=== PATIENT | female | born 1955 | race Caucasian/White ===

== ENCOUNTER 2018-01-01 17:02 | Emergency (ER) | payer OTHER ==
[~2018-01-01] VITALS: Ht 157.5 cm; Wt 92.1 kg
[~2018-01-01 17:02] MED LIST: ASPI325 PO; Alph-E-Mixed400 UNIT; BIEST/PROG PO; Calcium 600 MG1 EACH PO; Complete Multi1 EAC1 PO; Dhea Tablet1 EACH PO; MAGNESIUM400 MG PO; MELATONIN 5 MG PO; Super B Comple150 MG PO; Synthroid25 MCG PO; Vitamin C1000 M1 PO
[2018-01-01] MEDS ORDERED: LORA1SY (17:15)
[2018-01-01 17:37] LABS: BASOPHILS ABSOLUTE AUTO 0.01 K/mm3 (0.00-0.23); BASOPHILS PERCENT AUTO 0 % (0-2); EOSINOPHILS ABSOLUTE AUTO 0.08 K/mm3 (0.00-0.68); EOSINOPHILS PERCENT AUTO 1 % (0-6); Hematocrit 44.4 % (33.0-51.0); Hemoglobin 14.8 g/dL (11.5-16.0); IMMATURE GRAN ABSOLUTE AUTO 0.02 K/mm3 (0.00-0.10); IMMATURE GRAN PERCENT AUTO 0 % (0-1); LYMPHOCYTES ABSOLUTE AUTO 2.32 K/mm3 (0.84-5.20); LYMPHOCYTES PERCENT AUTO 32 % (21-46); MONOCYTES ABSOLUTE AUTO 0.41 K/mm3 (0.16-1.47); MONOCYTES PERCENT AUTO 6 % (4-13); Mean Corpuscular HGB 28.3 pg (26.0-34.0); Mean Corpuscular HGB Conc 33.3 g/dL (31.5-36.5); Mean Corpuscular Volume 85 fL (80-100); Mean Platelet Volume 9.6 fL (9.1-12.4); NEUTROPHILS ABSOLUTE AUTO 4.43 K/mm3 (1.96-9.15); NEUTROPHILS PERCENT AUTO 61 % (41-73); Platelet Count 303 K/mm3 (150-400); RDW Coefficient Variation 12.5 % (11.7-14.2); RDW Standard Deviation 38.4 fL (35.1-46.3); Red Blood Cell Count 5.23 M/mm3 (3.80-5.20); White Blood Cell Count 7.27 K/mm3 (4.00-11.30)
[2018-01-01 17:45] LABS: Base Excess Venous 0.5 mmol/L; Bicarbonate Venous 24.3 mmol/L (24.0-30.0); PCO2 Venous 39.1 mmHg (38-42); PO2 Venous 38.8 mmHg (38-42); pH Blood Venous 7.42 (7.34-7.37)
[2018-01-01 18:01] LABS: Alanine Aminotransfer (ALT/SGP 34 U/L (12-78); Albumin, Blood 3.3 g/dL (3.4-5.0); Albumin/Globulin Ratio 0.9 (0.8-1.8); Alk Phos 69 U/L (50-136); Anion Gap 10 mmol/L (6-16); Aspartate Aminotrans (AST/SGOT 27 U/L (12-37); Bilirubin, Total 0.3 mg/dL (0.1-1.0); Blood Urea Nitrogen 21 mg/dL (8-24); Bun/Creatinine Ratio 28.1 (12.0-20.0); CO2, Blood 23 mmol/L (21-32); Calcium, Blood 9.1 mg/dL (8.5-10.1); Chloride, Blood 109 mmol/L (98-108); Creatinine, Blood 0.75 mg/dL (0.40-1.00); Globulin, Blood 3.6 g/dL (2.2-4.0); Glomerular Filtration Rate >60 (60-); Glucose, Blood 144 mg/dL (70-99); Magnesium, Blood 2.1 mg/dL (1.6-2.4); Potassium, Blood 3.7 mmol/L (3.5-5.5); Sodium, Blood 142 mmol/L (136-145); Total Protein, Blood 6.9 g/dL (6.4-8.2); Troponin I <0.015 ng/mL (0.000-0.040)
[2018-01-01] MEDS ORDERED: EPIPEN 2-P0.3 MG/0.3 IM (19:09)
[2018-01-01 19:36] LABS: Free Thyroxine 2.23 ng/dL (0.70-1.60)
[2018-01-01 19:38] LABS: Triiodothyronine, Free 3.82 pg/mL (2.18-3.98)
== END 2018-01-01 19:22 | disposition home or self-care (01) ==
LOC: ER 17:02
PROVIDERS: Emergency Medicine
DX: R55 Syncope and collapse (principal); Z79.899 Other long term (current) drug therapy; Z79.82 Long term (current) use of aspirin
CPT/HCPCS: 71045; 80053; 82803; 82947; 83735; 83880; 84439; 84443; 84481; 84484; 85025; 93005; 93010; 94640; 96372; 99283; J0171; J7120

== ENCOUNTER → 2019-05-15 | Outpatient (CLI) | payer OTHER ==
[~2019-05-15] MED LIST changes: +EPIPEN 2-P0.3 MG/0.3 IM; +LORA1SY
== END | disposition home or self-care (01) ==
LOC: LAB SHORT 13:04 → PLD 13:04
DX: N95.0 Postmenopausal bleeding (principal)
CPT/HCPCS: 88305

== ENCOUNTER → 2019-05-15 | Outpatient (CLI) | payer OTHER ==
[2019-05-18 07:08] LABS: HPV 16 Negative (Negative); HPV 18 Negative (Negative); HPV OTHER HR TYPES Negative (Negative)
== END | disposition home or self-care (01) ==
LOC: LAB 11:06 → LAB SHORT 11:06
PROVIDERS: Advanced Practice Midwife
DX: Z01.419 Encounter for gynecological examination (general) (routine) without abnormal findings (principal)
CPT/HCPCS: 87624; G0123

== ENCOUNTER 2019-10-05 10:42 | Day surgery (SDC) | payer OTHER ==
[~2019-10-05] VITALS: Ht 154.9 cm; Wt 105.3 kg
[~2019-10-05 10:42] MED LIST changes: +ASCO500 PO; +BIEST/PROG; +CALCIUM + D3 E1 EACH PO; +DULO60 PO; +Fish Oil 10001000 MG PO; +LEVSOD112 PO; +MAGNESIUM OXID500 MG PO; +MELATONIN5 M1 PO; +MULTIPLE VITAM1 EACH PO; +PANCREATIN 8X1 GM PO; +PROBIOTIC1 EAC4 PO; +Super B Comple1 EAC2 PO; +VITAMIN E400 UNI1 PO
[2019-10-05] MEDS ORDERED: Flonase 0.05% N16 GM (11:26)
--- NOTE | 2019-10-05 11:28 | NUR ---
10/05/19 1128 Vijay Cao CALL LIGHT WITHIN REACH. FAMILY AT BEDSIDE
--- NOTE | 2019-10-05 12:57 | NUR ---
10/05/19 1257 Joy Catherine DEFICIT 60CC NACL INTRAUTERINE
== END 2019-10-05 13:47 | disposition home or self-care (01) ==
LOC: ORSCSDS 10:42
PROVIDERS: Obstetrics & Gynecology
PROC: 0UDB7ZX Extraction of Endometrium, Via Natural or Artificial Opening, Diagnostic (ICD-10-PCS; principal; 2019-10-05 12:00)
PROC: 0UJD8ZZ Inspection of Uterus and Cervix, Via Natural or Artificial Opening Endoscopic (ICD-10-PCS; principal; 2019-10-05 12:00)
DX: N95.0 Postmenopausal bleeding (principal); N84.0 Polyp of corpus uteri; E07.9 Disorder of thyroid, unspecified; R93.89 Abnormal findings on diagnostic imaging of other specified body structures; E66.01 Morbid (severe) obesity due to excess calories; Z68.41 Body mass index [BMI] 40.0-44.9, adult; Z79.82 Long term (current) use of aspirin; Z79.899 Other long term (current) drug therapy
CPT/HCPCS: 88305; J1100; J2250; J2405; J2704; J3010; J7120

== ENCOUNTER → 2020-07-17 | Outpatient (CLI) | payer SELFPAY ==
[~2020-07-17] MED LIST changes: +Flonase 0.05% N16 GM
[2020-07-17 10:10] LABS: Source, Urine Clean Catch
[2020-07-17 11:34] LABS: Appearance, Urine Hazy (Clear); Bilirubin, Urine Neg (Neg); Blood, Urine Neg (Neg); Color, Urine Yellow (P-Yellow); Glucose Qualitative, Urine Neg (Neg); Ketones, Urine Neg (Neg); Leukocyte Esterase, Urine Neg (Neg); Nitrite, Urine Neg (Neg); Protein, Urine Neg (Neg); Urobilinogen, Urine NORM (Normal)
[2020-07-17 12:19] LABS: Red Blood Cells, Urine 0-2 /hpf (0-2); White Blood Cells, Urine 0-2 /hpf (0-5)
[2020-07-17 12:20] LABS: Bacteria Few /hpf; Mucus Light (0-Heavy); Squamous Epithelial Cells Many /hpf (Few)
== END | disposition home or self-care (01) ==
LOC: LAB SHORT 09:10 → LAB 09:10
PROVIDERS: Internal Medicine
DX: Z13.9 Encounter for screening, unspecified (principal)
CPT/HCPCS: 81001